=== PATIENT | male | born 1970 | race Caucasian/White ===

== ENCOUNTER 2017-02-23 01:25 | Observation (INO) | payer OTHER ==
[~2017-02-23] VITALS: Ht 185.4 cm; Wt 148.5 kg
--- NOTE | 2017-02-23 06:59 | NUR ---
PT ARRIVED TO UNIT AT 620 AM VIA STRETCHER. PT DENIES CHEST PAIN, DENIES NAUSEA. PT PLACED ON TELE UPON ARRIVAL TO UNIT. ASSISTED TO BED, CALL [place] WITHING REACH. DENIES PAIN. DATA BASE ONE COMPLETED. LUNGS CTA, NON-PITTING EDEMA NOTED TO SUELLEN LOW EXT.
== END 2017-02-24 15:35 | disposition home or self-care (01) ==
LOC: ER 01:25 → MED 06:00
PROVIDERS: ADMIT Internal Medicine
DX: R07.9 Chest pain, unspecified (principal); G43.909 Migraine, unspecified, not intractable, without status migrainosus; R11.2 Nausea with vomiting, unspecified; E11.9 Type 2 diabetes mellitus without complications; I10 Essential (primary) hypertension; E78.5 Hyperlipidemia, unspecified; F43.10 Post-traumatic stress disorder, unspecified; F31.9 Bipolar disorder, unspecified; E66.9 Obesity, unspecified; I25.10 Atherosclerotic heart disease of native coronary artery without angina pectoris; Z79.84 Long term (current) use of oral hypoglycemic drugs; Z79.899 Other long term (current) drug therapy; Z79.82 Long term (current) use of aspirin; Z90.49 Acquired absence of other specified parts of digestive tract
CPT/HCPCS: 36415; 96361; 96365; 96374; 96375; G0378; J1885; J2765